=== PATIENT | male | born 2000 | race Caucasian/White ===

== ENCOUNTER 2023-05-23 17:55 | Emergency (ER) | payer SELFPAY ==
--- NOTE | 2023-05-23 19:34 | EDPHYS ---
Physician Documentation [facility] Name: Levy Granados Age: 22 yrs Sex: Male : 2000 Arrival Date: 05/23/2023 Time: 17:55 Bed DIS2 Private MD: ED Physician Amado Pereira HPI: 05/23 19:46 This 22 yrs old Male presents to ER via Ambulatory with complaints of Shortness Of snw Breath. 19:46 The patient has shortness of breath at rest, with light activity. Onset: The snw symptoms/episode began/occurred acutely. Duration: The symptoms are continuous. Associated signs and symptoms: Pertinent positives: sunburn, cough, fatigue, working in the heat. The patient has not experienced similar symptoms in the past. It is unknown whether or not the patient has recently seen a physician. Historical: - Allergies: 18:07 No Known Allergies; ap3 - Home Meds: 18:07 None [Active]; ap3 - PSHx: 18:07 shoulder sx; ap3 - Immunization history:: Client reports having NOT received the Covid vaccine. - Social history:: Smoking status: Patient reports the use of cigarette tobacco products, cigars. ROS: 19:44 Constitutional: Negative for fever, chills, and weight loss, Eyes: Negative for injury, snw pain, redness, and discharge, ENT: Negative for injury, pain, and discharge, Neck: Negative for injury, pain, and swelling, Cardiovascular: Negative for chest pain, palpitations, and edema, Respiratory: Positive for shortness of breath, cough, wheezing, no pleuritic chest pain, Abdomen/GI: Negative for abdominal pain, nausea, vomiting, diarrhea, and constipation, Back: Negative for injury and pain, : Negative for injury, bleeding, discharge, and swelling, MS/Extremity: Negative for injury and deformity, Skin: Negative for injury, rash, and discoloration, Neuro: Negative for headache, weakness, numbness, tingling, and seizure, Psych: Negative for depression, anxiety, suicide ideation, homicidal ideation, and hallucinations. Exam: 18:22 Constitutional: This is a well developed, well nourished patient who is awake, alert, snw and in no acute distress. Head/Face: Normocephalic, atraumatic. Eyes: Pupils equal round and reactive to light, extra-ocular motions intact. Lids and lashes normal. Conjunctiva and sclera are non-icteric and not injected. Cornea within normal limits. Periorbital areas with no swelling, redness, or edema. ENT: Nares patent. No nasal discharge, no septal abnormalities noted. Tympanic membranes are normal and external auditory canals are clear. Oropharynx with no redness, swelling, or masses, exudates, or evidence of obstruction, uvula midline. Mucous membranes moist. Neck: Trachea midline, no thyromegaly or masses palpated, and no cervical lymphadenopathy. Supple, full range of motion without nuchal rigidity, or vertebral point tenderness. No Meningismus. Chest/axilla: Normal chest wall appearance and motion. Nontender with no deformity. No lesions are appreciated. Cardiovascular: Regular rate and rhythm with a normal S1 and S2. No gallops, murmurs, or rubs. Normal PMI, no JVD. No pulse deficits. 18:22 Abdomen/GI: Soft, non-tender, with normal bowel sounds. No distension or tympany. No guarding or rebound. No evidence of tenderness throughout. Back: No spinal tenderness. No costovertebral tenderness. Full range of motion. MS/ Extremity: Pulses equal, no cyanosis. Neurovascular intact. Full, normal range of motion. Neuro: Awake and alert, GCS 15, oriented to person, place, time, and situation. Cranial nerves II-XII grossly intact. Motor strength 5/5 in all extremities. Sensory grossly intact. Cerebellar exam normal. Normal gait. Psych: Awake, alert, with orientation to person, place and time. Behavior, mood, and affect are within normal limits. 18:22 Respiratory: the patient does not display signs of respiratory distress, Respirations: normal, Breath sounds: wheezing: expiratory is heard diffusely. 18:22 Skin: Appearance: normal except for affected area, Color: erythematous, sunburned face, neck, arms. Vital Signs: 18:06 BP 118 / 86; Pulse 88; Resp 19; Temp 98.4; Pulse Ox 96% ; Weight 68.04 kg; Height 5 ft. ap3 9 in. ; 20:12 Pulse 90; Resp 20 S; Pulse Ox 100% on R/A; as6 18:06 Body Mass Index 22.15 (68.04 kg, 175.26 cm) ap3 MDM: 18:02 Patient medically screened. snw 19:47 Differential diagnosis: Anxiety Reaction asthma, Bronchitis pneumonia, reactive airway snw disease. Data reviewed: vital signs, nurses notes, radiologic studies. I considered the following discharge prescriptions or medication management in the emergency department Medications were administered in the Emergency Department. See MAR. Counseling: I had a detailed discussion with the patient and/or guardian regarding the historical points, exam findings, and any diagnostic results supporting the discharge/admit diagnosis, radiology results, the need for outpatient follow up, to return to the emergency department if symptoms worsen or persist or if there are any questions or concerns that arise at home. Special discussion: Based on the history and exam findings, there is no indication for further emergent testing or inpatient evaluation. I discussed with the patient/guardian the need to see the primary care provider for further evaluation of the symptoms. 05/23 18:13 Order name: Chest Pa And Lat (2 Views) XRAY; Complete Time: 19:37 snw Administered Medications: 19:55 Drug: predniSONE PO 40 mg Route: PO; as6 20:11 Follow up: Response: No adverse reaction as6 19:55 Drug: Famotidine PO 20 mg Route: PO; as6 20:10 Follow up: Response: No adverse reaction as6 19:55 Drug: Albuterol Inhalation 2.5 mg Route: Inhalation; as6 20:10 Follow up: Response: No adverse reaction as6 Disposition Summary: 05/23/23 19:33 Discharge Ordered Location: Home snw Condition: Stable snw Diagnosis - Acute bronchitis, unspecified snw - Sunburn of first degree snw Followup: snw - With: Emergency Department - When: As needed - Reason: Worsening of condition Followup: snw - With: Private Physician - When: 2 - 3 days - Reason: Recheck today's complaints, Continuance of care, Re-evaluation by your physician Discharge Instructions: - Discharge Summary Sheet snw - Acute Bronchitis, Adult snw - Sunburn, Adult snw - Rehydration, Adult snw Forms: - Work release form snw - Medication Reconciliation Form snw - Thank You Letter snw - Antibiotic Education snw - Prescription Opioid Use snw - Patient Portal Instructions snw - Leadership Thank You Letter snw Prescriptions: - albuterol sulfate 90 mcg/actuation Inhalation HFA Aerosol Inhaler - inhale 2 puff by INHALATION route every 4 hours as needed for shortness of snw breath or wheezing; until breathing returns to target peak flow/parameters; 1 unit; Refills: 0, Product Selection Permitted - Zyrtec 10 mg Oral Tablet - take 1 tablet by ORAL route once daily As needed; 20 tablet; Refills: 0, snw Product Selection Permitted - Prednisone 20 mg Oral Tablet - take 2 tablets by ORAL route once daily for 5 days; 10 tablet; Refills: 0, snw Product Selection Permitted - Pepcid 20 mg Oral Tablet - take 1 tablet by ORAL route once daily; 20 tablet; Refills: 0, Product snw Selection Permitted Signatures: Dispatcher [employer] EDMS Monica Carlton, SIER[employer]-C AUT[employer] INSPECTION SPECIALIST-Csnw Maryse Grier RN RN ap3 Devyn Gil RN RN as6 Corrections: (The following items were deleted from the chart) 18:09 18:07 PMHx: Seizure; ap3 ap3
--- NOTE | 2023-05-23 19:34 | ER ---
Nurse's Notes [facility] Name: Levy Granados Age: 22 yrs Sex: Male : 2000 Arrival Date: 05/23/2023 Time: 17:55 Bed DIS2 Private MD: Diagnosis: Acute bronchitis, unspecified;Sunburn of first degree Presentation: 05/23 18:06 Chief complaint: Patient states: he feels like he is drowning and cant catch his ap3 breath. patient reports feeling this way for approx one week now. Coronavirus screen: Client presents with at least one sign or symptom that may indicate coronavirus-19. Ebola Screen: No symptoms or risks identified at this time. Initial Sepsis Screen: Does the patient meet any 2 criteria? No. Patient's initial sepsis screen is negative. Does the patient have a suspected source of infection? No. Patient's initial sepsis screen is negative. Risk Assessment: Do you want to hurt yourself or someone else? Patient reports no desire to harm self or others. Onset of symptoms was May 16, 2023. 18:06 Method Of Arrival: Ambulatory ap3 18:06 Acuity: KATHI 3 ap3 Triage Assessment: 18:09 General: Appears in no apparent distress. Behavior is calm, cooperative, appropriate ap3 for age. Pain: Denies pain. Neuro: Level of Consciousness is awake, alert, obeys commands, Oriented to person, place, time, situation. Cardiovascular: Patient's skin is warm and dry. Respiratory: Reports shortness of breath at rest Airway is patent Respiratory effort is even, unlabored, Onset: The symptoms/episode began/occurred gradually, the patient has mild shortness of breath. Historical: - Allergies: 18:07 No Known Allergies; ap3 - Home Meds: 18:07 None [Active]; ap3 - PSHx: 18:07 shoulder sx; ap3 - Immunization history:: Client reports having NOT received the Covid vaccine. - Social history:: Smoking status: Patient reports the use of cigarette tobacco products, cigars. Screenin:09 [facility] ED Fall Risk Assessment (Adult) History of falling in the last 3 months, ap3 including since admission No falls in past 3 months (0 pts). Abuse screen: Denies threats or abuse. Nutritional screening: No deficits noted. Tuberculosis screening: No symptoms or risk factors identified. Assessment: 18:09 Respiratory: Airway is patent Respiratory effort is even, unlabored. ap3 Vital Signs: 18:06 BP 118 / 86; Pulse 88; Resp 19; Temp 98.4; Pulse Ox 96% ; Weight 68.04 kg; Height 5 ft. ap3 9 in. ; 20:12 Pulse 90; Resp 20 S; Pulse Ox 100% on R/A; as6 18:06 Body Mass Index 22.15 (68.04 kg, 175.26 cm) ap3 ED Course: 18:00 Patient arrived in ED. rg4 18:01 Monica Carlton FNP-C is PHCP. snw 18:01 Amado Pereira MD is Attending Physician. snw 18:07 Triage completed. ap3 18:09 Arm band placed on right wrist. ap3 18:39 Chest Pa And Lat (2 Views) XRAY In Process Unspecified. EDMS 20:11 Bed in low position. Call light in reach. Provided Education on: rx teaching . as6 20:12 No provider procedures requiring assistance completed. Patient did not have IV access as6 during this emergency room visit. Administered Medications: 19:55 Drug: predniSONE PO 40 mg Route: PO; as6 20:11 Follow up: Response: No adverse reaction as6 19:55 Drug: Famotidine PO 20 mg Route: PO; as6 20:10 Follow up: Response: No adverse reaction as6 19:55 Drug: Albuterol Inhalation 2.5 mg Route: Inhalation; as6 20:10 Follow up: Response: No adverse reaction as6 Medication: 20:12 VIS not applicable for this client. as6 Outcome: 19:33 Discharge ordered by . snw 20:12 Discharged to home ambulatory, with significant other. as6 20:12 Condition: stable 20:12 Discharge instructions given to patient, Instructed on discharge instructions, follow up and referral plans. medication usage, Demonstrated understanding of instructions, follow-up care, medications, Prescriptions given X 4. 20:12 Patient left the ED. as6 Signatures: Dispatcher [employer] EDSD Monica Carlton FNP-C FNP-Csnw Garcia, Rubi rg4 Maryse Grier RN RN ap3 Devyn Gil RN RN as6 Corrections: (The following items were deleted from the chart) 18:09 18:07 PMHx: Seizure; ap3 ap3
--- NOTE | 2023-05-23 19:36 | RAD REPORT ---
EXAM DESCRIPTION: RAD - Chest Pa And Lat (2 Views) - 05/23/2023 6:37 pm CLINICAL HISTORY: COUGH COMPARISON: No comparisons TECHNIQUE: PA and lateral views of the chest were obtained. FINDINGS: The lungs are clear. Heart size is normal and central vasculature is within normal limits. No pleural effusion or pneumothorax seen. No acute bony finding noted. IMPRESSION: No acute cardiopulmonary process.
[2023-05-23] MEDS ORDERED: predniSONE 20 MG TAB ONE (20:03)
[2023-05-23] MEDS ORDERED: ALBUTEROL 2.5 MG/3 ML NEB SOL ONE (20:03)
[2023-05-23] MEDS ORDERED: FAMOTIDINE 20 MG TAB ONE (20:04)
[2023-05-23 21:38] VITALS: BP 118/86; TEMP 98.4
[2023-05-23 21:39] VITALS: O2SAT 100
== END 2023-05-23 20:12 | disposition home or self-care (01) ==
LOC: ER 17:55
DX: J20.9 Acute bronchitis, unspecified (principal); L55.0 Sunburn of first degree
CPT/HCPCS: 71046; 99284; J7512; J7613

== ENCOUNTER 2024-12-01 01:47 | Emergency (ER) | payer SELFPAY ==
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
[2024-12-01] MEDS ORDERED: IPRATROPIUM BROM 0.5MG/2.5ML ONE (02:24)
[2024-12-01] MEDS ORDERED: predniSONE 20 MG TAB ONE (02:24)
[2024-12-01] MEDS ORDERED: ALBUTEROL 2.5 MG/3 ML NEB SOL ONE (02:24)
[2024-12-01] MEDS ORDERED: BENZONATATE 100 MG CAP PO ONE (02:25)
[2024-12-01 03:47] LABS: Influenza A Ag Negative; Influenza B Ag Negative; SARS-CoV-2 Antigen Rapid Res Negative (Negative)
--- NOTE | 2024-12-01 04:12 | EDPHYS ---
Physician Documentation [facility] Name: Levy Granados Age: 24 yrs Sex: Male : 2000 Arrival Date: 12/01/2024 Time: 01:47 Bed 5 Private MD: ED Physician Marlon Campbell HPI: 12/01 02:06 This 24 yrs old Male presents to ER via Unassigned with complaints of Chest sp4 Pressure, Cough, Chest Congestion. 23:52 24-year-old male presents with complaint of chest pressure cough and chest congestion. sp4 Patient reports very prominent cough productive of brownish sputum. . Historical: - Allergies: 02:38 No Known Allergies; ha1 - PMHx: 02:38 None; ha1 - Immunization history:: Adult Immunizations Last tetanus immunization: up to date. - Infectious Disease History:: Denies. - Social history:: Smoking status: Patient/guardian denies using tobacco, Stopped _ months ago 2. - Family history:: not pertinent. ROS: 23:52 Constitutional: Negative for fever, chills, and weight loss, positive chest pressure, sp4 cough, congestion positive brown sputum 23:52 All other systems are negative, Exam: 23:52 Constitutional: This is a well developed, well nourished patient who is awake, alert, sp4 and in no acute distress. Head/Face: Normocephalic, atraumatic. Eyes: Pupils equal round and reactive to light, extra-ocular motions intact. Lids and lashes normal. Conjunctiva and sclera are not injected. Cornea within normal limits. Periorbital areas with no swelling, redness, or edema. ENT: Nares patent. No nasal discharge, no septal abnormalities noted. Tympanic membranes are normal and external auditory canals are clear. Oropharynx with no redness, swelling, or masses, exudates, or evidence of obstruction, uvula midline. Mucous membranes moist. Neck: Trachea midline, no thyromegaly or masses palpated, and no cervical lymphadenopathy. Supple, full range of motion without nuchal rigidity, or vertebral point tenderness. Chest/axilla: Normal chest wall appearance and motion. Nontender with no deformity. No lesions are appreciated. Cardiovascular: Regular rate and rhythm with a normal S1 and S2. No gallops, murmurs, or rubs. Normal PMI, no JVD. No pulse deficits. Respiratory: Lungs have equal breath sounds bilaterally, clear to auscultation and percussion. No rales, rhonchi or wheezes noted. No increased work of breathing, no retractions or nasal flaring. Abdomen/GI: Soft, with normal bowel sounds. No distension or tympany. No guarding or rebound. No evidence of tenderness throughout. Back: No spinal tenderness. No costovertebral tenderness. Skin: Warm, dry with normal turgor. Normal color with no rashes, no lesions, and no evidence of cellulitis. MS/ Extremity: Pulses equal, no cyanosis. Neurovascular intact. Full, normal range of motion. Neuro: Awake and alert, GCS 15, oriented to person, place, time, and situation. Cranial nerves II-XII grossly intact. Motor strength 5/5 in all extremities. Sensory grossly intact. Psych: Awake, alert, with orientation to person, place and time. Behavior, mood, and affect are within normal limits Vital Signs: 02:01 BP 138 / 77; Pulse 88; Resp 20; Temp 99; Pulse Ox 90% ; Weight 72.57 kg; Height 5 ft. 7 hw in. ; 03:00 BP 131 / 79; Pulse 80; Resp 20; Pulse Ox 99% ; jj7 04:05 BP 134 / 74; Pulse 82; Resp 20; Temp 98.9; Pulse Ox 99% ; Pain 0/10; jj7 02:01 Body Mass Index 25.06 (72.57 kg, 170.18 cm) hw 04:05 Pain Scale: Adult jj7 Parlin Coma Score: 23:52 Eye Response: spontaneous(4). Motor Response: obeys commands(6). Verbal Response: sp4 oriented(5). Total: 15. MDM: 02:06 Medical Screening Exam initiated sp4 06:46 ED course: EXAM: XR Chest, 2 Views CLINICAL HISTORY: The patient is 24 years old and is sp4 Male; cough , congestion TECHNIQUE: Frontal and lateral views of the chest. COMPARISON: No relevant prior studies available. FINDINGS: Lungs: Mild hazy opacity in the lower left lung. Pleural space: Unremarkable. No pneumothorax. Heart: Unremarkable. Mediastinum: Unremarkable. Normal mediastinal contour. Bones/joints: No acute findings. IMPRESSION: Mild hazy opacity in the lower left lung. Electronically signed by: Charbel Rodríguez MD 12/01/2024 06:20 AM. 23:52 Differential diagnosis: acute pericarditis, anxiety, chest wall pain, pericarditis, sp4 pleurisy, pneumonia. Data reviewed: vital signs, nurses notes, old medical records, lab test result(s), radiologic studies, plain films. Consideration of Admission/Observation Escalation of care including admission/observation considered. ED course: Patient stable for discharge home with p.o. Zithromax.. 12/01 02:10 Order name: COVID-19 Ag + Flu A+B Ag; Complete Time: 04:02 sp4 12/01 02:16 Order name: Chest Pa And Lat (2 Views) XRAY sp4 Administered Medications: 02:32 Drug: predniSONE PO 60 mg PO once Route: PO; ha1 04:29 Follow up: Response: Marked relief of symptoms jj7 02:32 Drug: Tessalon Perle PO 200 mg PO once Route: PO; ha1 04:29 Follow up: Response: Marked relief of symptoms jj7 03:31 Drug: Albuterol Inhalation 2.5 mg Inhalation once Route: Inhalation; ha1 04:29 Follow up: Response: Marked relief of symptoms jj7 03:31 Drug: Ipratropium Inhalation Aerosol 0.5 mg Inhalation once Route: Inhalation; ha1 Disposition: 23:54 Chart complete. sp4 Disposition Summary: 12/01/24 04:11 Discharge Ordered Notes: Location: Home sp4 Problem: new sp4 Symptoms: have improved sp4 Condition: Stable sp4 Diagnosis - Cough sp4 - Acute pharyngitis, unspecified sp4 - Upper respiratory infection sp4 Followup: sp4 - With: Private Physician - When: 7 - 10 days - Reason: Recheck today's complaints Discharge Instructions: - Discharge Summary Sheet sp4 - Cough, Adult, [id number] sp4 Forms: - Work release form em1 - Patient Portal Instructions sp4 Prescriptions: - Nebulizer with Adult Mask - 0 Dispense One Nebulizer with Adult mask, use as directed; ; Refills: 0, sp4 Product Selection Permitted - Albuterol Sulfate 2.5 mg /3 mL (0.083 %) Inhalation Solution for Nebulization - inhale 1 unit NEBULIZATION route every 4 hours As needed Dispense 50 vials , sp4 Use with nebulizer as directed, PRN dyspnea; 50 unit; Refills: 0, Product Selection Permitted - Zithromax Z-Naldo 250 mg Oral Tablet - take 1 tablet ORAL route as directed for 5 days Day 1 - take two (2) tablets sp4 one time. Day 2, 3, 4 , 5 take one (1) tablet once daily.; 6 tablet; Refills: 0, Product Selection Permitted - benzonatate 200 mg Oral capsule - take 1 capsule ORAL route 3 times per day PRN cough; 60 capsule; Refills: 0, sp4 Product Selection Permitted Signatures: Dispatcher [employer] Nava Maldonado RN RN ha1 Marlon Campbell MD MD sp4 Sharron Vogt RN jj7
--- NOTE | 2024-12-01 04:12 | ER ---
Nurse's Notes [facility] Name: Levy Granados Age: 24 yrs Sex: Male : 2000 Arrival Date: 12/01/2024 Time: 01:47 Bed 5 Private MD: Diagnosis: Cough;Acute pharyngitis, unspecified;Upper respiratory infection Presentation: 12/01 01:54 Chief complaint: Patient states: COUGH, NASAL CONGESTION, CHEST PRESSURE WHEN COUGHING. ha1 01:54 Coronavirus screen: Client denies travel out of the [place] in the last 14 days. Ebola ha1 Screen: No symptoms or risks identified at this time. Initial Sepsis Screen: Does the patient meet any 2 criteria? No. Patient's initial sepsis screen is negative. Does the patient have a suspected source of infection? No. Patient's initial sepsis screen is negative. Risk Assessment: Do you want to hurt yourself or someone else? Patient reports no desire to harm self or others. Onset of symptoms was December 01, 2024. 01:54 Method Of Arrival: Ambulatory ha1 01:54 Acuity: KATHI 4 ha1 Triage Assessment: 02:00 General: Appears uncomfortable, Behavior is calm, cooperative. Pain: Complains of pain ha1 in CHEST PRESSURE WHEN COUGHING. Neuro: Level of Consciousness is awake, alert, obeys commands, Oriented to person, place, time, situation. Cardiovascular: Capillary refill < 3 seconds Patient's skin is warm and dry. Respiratory: Airway is patent Respiratory effort is even, unlabored, Respiratory pattern is regular, symmetrical. GI: No signs and/or symptoms were reported involving the gastrointestinal system. Abdomen is round non-distended. GI: No signs and/or symptoms were reported involving the gastrointestinal system. : No signs and/or symptoms were reported regarding the genitourinary system. Derm: No signs and/or symptoms reported regarding the dermatologic system. Skin is pink, warm \T\ dry. Musculoskeletal: Circulation, motion, and sensation intact. Range of motion: intact in all extremities. Historical: - Allergies: 02:38 No Known Allergies; ha1 - PMHx: 02:38 None; ha1 - Immunization history:: Adult Immunizations Last tetanus immunization: up to date. - Infectious Disease History:: Denies. - Social history:: Smoking status: Patient/guardian denies using tobacco, Stopped _ months ago 2. - Family history:: not pertinent. Screenin:40 [facility] ED Fall Risk Assessment (Adult) History of falling in the last 3 months, ha1 including since admission No falls in past 3 months (0 pts) Confusion or Disorientation No (0 pts) Intoxicated or Sedated No (0 pts) Impaired Gait No (0 pts) Mobility Assist Device Used No (0 pt) Altered Elimination No (0 pt) Score/Fall Risk Level 0 - 2 = Low Risk Oriented to surroundings, Maintained a safe environment, Educated pt \T\ family on fall prevention, incl call for assistance when getting out of bed, Hourly rounding (assess needs \T\ fall precautionary measures) done. Abuse screen: Denies threats or abuse. Denies injuries from another. Nutritional screening: No deficits noted. Tuberculosis screening: No symptoms or risk factors identified. Assessment: 01:54 Reassessment: SEE TRIAGE ASSESSMENT. ha1 03:30 Reassessment: Patient and/or family updated on plan of care and expected duration. Pain ha1 level reassessed. Patient is alert, oriented x 3, equal unlabored respirations, skin warm/dry/pink. Vital Signs: 02:01 BP 138 / 77; Pulse 88; Resp 20; Temp 99; Pulse Ox 90% ; Weight 72.57 kg; Height 5 ft. 7 hw in. ; 03:00 BP 131 / 79; Pulse 80; Resp 20; Pulse Ox 99% ; jj7 04:05 BP 134 / 74; Pulse 82; Resp 20; Temp 98.9; Pulse Ox 99% ; Pain 0/10; jj7 02:01 Body Mass Index 25.06 (72.57 kg, 170.18 cm) 04:05 Pain Scale: Adult jj7 [place]ull[place] Coma Score: 23:52 Eye Response: spontaneous(4). Motor Response: obeys commands(6). Verbal Response: sp4 oriented(5). Total: 15. ED Course: 01:50 Patient arrived in ED. jj6 01:54 Patient has correct armband on for positive identification. Bed in low position. Call ha1 light in reach. Side rails up X 1. Client placed on continuous cardiac and pulse oximetry monitoring. NIBP monitoring applied. 02:06 Marlon Campbell MD is Attending Physician. sp4 02:32 COVID-19 Ag + Flu A+B Ag Sent. ha1 02:38 Triage completed. ha1 02:47 Chest Pa And Lat (2 Views) XRAY In Process Unspecified. EDMS 04:28 No provider procedures requiring assistance completed. Patient did not have IV access jj7 during this emergency room visit. Patient maintains SpO2 saturation greater than 95% on room air. 04:29 Arm band placed on right wrist. jj7 04:29 Provided Education on: FOLLOW [employer] . ha1 Administered Medications: 02:32 Drug: predniSONE PO 60 mg PO once Route: PO; ha1 04:29 Follow up: Response: Marked relief of symptoms jj7 02:32 Drug: Tessalon Perle PO 200 mg PO once Route: PO; ha1 04:29 Follow up: Response: Marked relief of symptoms jj7 03:31 Drug: Albuterol Inhalation 2.5 mg Inhalation once Route: Inhalation; ha1 04:29 Follow up: Response: Marked relief of symptoms jj7 03:31 Drug: Ipratropium Inhalation Aerosol 0.5 mg Inhalation once Route: Inhalation; ha1 Medication: 04:28 VIS not applicable for this client. jj7 Outcome: 04:11 Discharge ordered by . sp4 04:28 Discharged to home ambulatory, jj7 04:28 Condition: improved 04:28 Discharge instructions given to patient, Instructed on discharge instructions, medication usage, Demonstrated understanding of instructions, medications, Prescriptions given X 4, 04:29 Patient left the ED. jj7 Signatures: Dispatcher [employer] EDWA Christine Pratima jj6 Nava Green RN RN ha1 Sharron Vogt RN RN jj7 Marlon Campbell MD MD sp4 Cheryl Johnson
[2024-12-01 04:35] VITALS: O2SAT 99
[2024-12-01 04:37] VITALS: BP 134/74; TEMP 98.9
--- NOTE | 2024-12-01 07:02 | RAD REPORT ---
EXAM: XR Chest, 2 Views CLINICAL HISTORY: The patient is 24 years old and is Male; cough , congestion TECHNIQUE: Frontal and lateral views of the chest. COMPARISON: No relevant prior studies available. FINDINGS: Lungs: Mild hazy opacity in the lower left lung. Pleural space: Unremarkable. No pneumothorax. Heart: Unremarkable. Mediastinum: Unremarkable. Normal mediastinal contour. Bones/joints: No acute findings. IMPRESSION: Mild hazy opacity in the lower left lung. Electronically signed by: Charbel Rodríguez MD 12/01/2024 06:20 AM CDT 8 Transcribed Date/Time: 12/01/2024 7:02 AM
== END 2024-12-01 04:29 | disposition home or self-care (01) ==
LOC: ER 01:47
DX: J06.9 Acute upper respiratory infection, unspecified (principal); J02.9 Acute pharyngitis, unspecified; Z11.52 Encounter for screening for COVID-19
CPT/HCPCS: 36415; 71046; 87428; 99284; J7512; J7613; J7644